=== PATIENT | male | born 1965 | race Caucasian/White ===

== ENCOUNTER → 2017-04-12 | Outpatient (CLI) | payer OTHER ==
[~2017-04-12] MED LIST: ASPI325T39 PO; B-CO1CAP3 PO; CALC-354 PO; MAGN400T6 PO; OMEG10007 PO
[2017-04-12 17:38] LABS: BASO % 0.5 %; BASO ABS # 0.03 K/uL (0-0.2); EOS % 1.4 %; EOS ABS # 0.09 K/uL (0-0.5); HEMATOCRIT 46.6 % (42-52); HEMOGLOBIN 16.2 g/dL (14.0-18.0); IG# 0.03 K/uL (0.00-0.02); LYMPH % 30.2 %; LYMPH ABS # 1.99 K/uL (1.2-3.4); MEAN CELL VOLUME 92.8 fL (80-100); MEAN CORPUSCULAR HEMOGLOBIN 32.3 pg (25-34); MEAN CORPUSCULAR HGB CONC 34.8 g/dl (32-36); MEAN PLATELET VOLUME 10.6 fL (7.4-10.4); MONO % 6.8 %; MONO ABS # 0.45 K/uL (0.11-0.59); NEUT % 60.6 %; NEUT ABS # 3.99 K/uL (1.4-6.5); PLATELET COUNT 165 K/uL (130-400); RED CELL DISTRIBUTION WIDTH CV 12.7 % (11.5-14.5); RED CELL DISTRIBUTION WIDTH SD 43.3 fL (36.4-46.3); WHITE BLOOD COUNT 6.58 K/uL (4.8-10.8)
[2017-04-12 17:54] LABS: ALBUMIN 4.4 gm/dl (3.4-5.0); ALT/SGPT 47 U/L (12-78); AST/SGOT 21 U/L (15-37); BLOOD UREA NITROGEN 15 mg/dl (7-18); CALCIUM 9.5 mg/dl (8.5-10.1); CARBON DIOXIDE 27 mmol/L (21-32); CREATININE 1.17 mg/dl (0.60-1.40); GLUCOSE 98 mg/dl (70-99); POTASSIUM 4.2 mmol/L (3.5-5.1); SODIUM 134 mmol/L (136-145)
[2017-04-12 17:56] LABS: ALKALINE PHOSPHATASE 86 U/L (45-117); CHOLESTEROL 171 mg/dl (0-200); LDL CHOLESTEROL CALCULATED 91 mg/dl; TOTAL PROTEIN 8.2 gm/dl (6.4-8.2)
== END | disposition home or self-care (01) ==
LOC: C.LABBFT 14:45
PROVIDERS: ATTEND Nurse Practitioner
DX: I10 Essential (primary) hypertension (principal)

== ENCOUNTER → 2017-04-15 | Outpatient (CLI) | payer OTHER ==
--- NOTE | 2017-04-15 14:35 | DIAGNOSTIC IMAGING REPORT ---
BILATERAL CAROTID DOPPLER STUDY HISTORY: H53.9 Vision changes Z95.2 History of aortic valve replacement COMPARISON: Chest CTA 02/22/2015. TECHNIQUE: Real-time, grayscale, and color Doppler sonography of the carotid arteries was performed. Imaging reviewed in the transverse and longitudinal planes. All measurements were calculated based on NASCET criteria. FINDINGS: Antegrade flow is seen in the bilateral vertebral arteries. The brachial pressures are hemodynamically similar. The peak systolic velocity within the right ICA is 67 cm/s. The right systolic ratio is 0.7. The peak systolic velocity within the left ICA is 72 cm/s. The left systolic ratio is 0.9. IMPRESSION: No hemodynamically significant stenosis seen within the carotid arteries. Electronically signed by: Isauro Calzada M.D. 04/15/2017 2:33 PM Dictated Date/Time: 04/15/2017 2:27 PM
== END | disposition home or self-care (01) ==
LOC: C.ULTR 13:33
PROVIDERS: ATTEND Nurse Practitioner
DX: H53.9 Unspecified visual disturbance (principal); Z95.2 Presence of prosthetic heart valve

== ENCOUNTER → 2017-04-26 | Outpatient (CLI) | payer OTHER ==
[~2017-04-26] MED LIST changes: +OPTIRAY 320 IV PRN
--- NOTE | 2017-04-26 14:37 | DIAGNOSTIC IMAGING REPORT ---
CT (CHEST) THORAX WITH CT DOSE: 731.39 mGycm HISTORY: Pain R07.9 Central chest painZ95.2 History of aortic valve replacemen TECHNIQUE: Multiaxial CT images of the chest were performed following the intravenous administration of contrast. A dose lowering technique was utilized adhering to the principles of ALARA. COMPARISON: 02/22/2015 FINDINGS: Interval findings of a median sternotomy and mitral valve repair. 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 This has diminished to 3.7 cm maximum transaxial dimension compared to the prior measurement of 6.5 cm. There is a residual dissection flap at the arch itself is similar configuration compared to the prior study. The dissection flap near the root of the aorta previously noted is not present currently. The current dissection flap extends over dimension of approximately 5 cm transaxially. There are several reactive mediastinal nodes. These measure up to 1.5 cm. The heart is mildly enlarged. There is no pericardial effusion. Lungs are considered clear. IMPRESSION: 1. 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 Interval placement of a aortic valve with evidence for median sternotomy. 3. 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 4. The dissection flap near the root of the aorta has been repaired The above report was generated using voice recognition software. It may contain grammatical, syntax or spelling errors. Electronically signed by: Michele Coley M.D. 04/26/2017 2:36 PM Dictated Date/Time: 04/26/2017 2:28 PM
== END | disposition home or self-care (01) ==
LOC: C.CTS 14:02
PROVIDERS: ATTEND Nurse Practitioner
DX: R07.9 Chest pain, unspecified (principal); Z95.2 Presence of prosthetic heart valve